=== PATIENT | female | born 1950 | race Caucasian/White ===

== ENCOUNTER → 2016-12-13 | Outpatient (CLI) | payer OTHER | LOC: ECHO 11-29 11:00 | DX: R55 Syncope and collapse (principal); I10 Essential (primary) hypertension; R60.9 Edema, unspecified; I34.1 Nonrheumatic mitral (valve) prolapse; R00.2 Palpitations; I48.0 Paroxysmal atrial fibrillation; I65.23 Occlusion and stenosis of bilateral carotid arteries | CPT/HCPCS: ECHO; 70553; 93306; 93880; A9577 ==

== ENCOUNTER → 2021-02-24 | Outpatient (CLI) | payer OTHER ==
[~2021-02-24] MED LIST: ASPIRIN325 MG PO; ATIVAN0.5 MG PO; ATIVAN1 MG PO; CALCIUM600 MG PO; CATAPRES 0.1MG0.1 MG PO; FISH OIL 1,0001 EAC1 PO; HYDROCHLOROTHIA25 MG PO; KLOR-CON M1010 MEQ PO; LIPITOR TAB 2020 MG PO; METOPROLOL SUCC50 MG PO; NORVASC 5 MG TAB5 MG PO
== END ==
LOC: US 09:02
DX: N28.1 Cyst of kidney, acquired (principal)

== ENCOUNTER → 2021-04-06 | Outpatient (CLI) | payer OTHER | LOC: LAB 09:15 | PROVIDERS: Internal Medicine Nephrology | DX: N18.30 Chronic kidney disease, stage 3 unspecified (principal); E78.5 Hyperlipidemia, unspecified | CPT/HCPCS: 36415; 80053; 82550; 82570; 83970; 84100; 84156 ==

== ENCOUNTER → 2021-05-21 | Outpatient (CLI) | payer OTHER | LOC: KOH-I 09:12 | DX: M48.061 Spinal stenosis, lumbar region without neurogenic claudication (principal); M54.5 Low back pain; M51.36 Other intervertebral disc degeneration, lumbar region | CPT/HCPCS: 72148 ==

== ENCOUNTER → 2021-07-15 | Outpatient (CLI) | payer OTHER | LOC: MAMO 08:14 | DX: Z12.31 Encounter for screening mammogram for malignant neoplasm of breast (principal) | CPT/HCPCS: 77063; 77067 ==

== ENCOUNTER → 2021-10-27 | Outpatient (CLI) | payer OTHER | LOC: LAB 08:17 | PROVIDERS: Internal Medicine Nephrology | DX: N18.32 Chronic kidney disease, stage 3b (principal) | CPT/HCPCS: 36415; 80053; 82570; 84156 ==

== ENCOUNTER → 2022-01-05 | Outpatient (CLI) | payer OTHER | LOC: US 13:01 | DX: N28.1 Cyst of kidney, acquired (principal) ==

== ENCOUNTER → 2022-03-16 | Outpatient (CLI) | payer OTHER ==
[2022-03-17 08:14] LABS: RPR Non Reactive (Non Reactive)
[2022-03-17 12:14] LABS: ALDOLASE 4.4 U/L (3.3-10.3)
== END ==
LOC: LAB 10:44
PROVIDERS: Psychiatry & Neurology Neurology
DX: G20 Parkinson's disease (principal); G62.9 Polyneuropathy, unspecified; G25.81 Restless legs syndrome; R26.89 Other abnormalities of gait and mobility; R20.8 Other disturbances of skin sensation; R25.8 Other abnormal involuntary movements; R29.898 Other symptoms and signs involving the musculoskeletal system
CPT/HCPCS: 36415; 82085; 82550; 82607; 82746; 83921; 86592

== ENCOUNTER 2022-05-04 09:05 | Emergency (ER) | payer OTHER | END 2022-05-04 14:04 | disposition home or self-care (01) | LOC: ER1 09:05 | DX: U07.1 COVID-19 (principal); I10 Essential (primary) hypertension; G20 Parkinson's disease; Z88.8 Allergy status to other drugs, medicaments and biological substances | CPT/HCPCS: 99283; M0222 ==